=== PATIENT | female | born 1965 | race Caucasian/White ===

== ENCOUNTER 2016-07-28 07:02 | Day surgery (SDC) | payer OTHER ==
[~2016-07-28] VITALS: Ht 167.6 cm; Wt 81.2 kg
[~2016-07-28 07:02] MED LIST: COLACE100 MG PO; FLAGYL500 MG PO; FLUTICASONE PRO16 GM NASAL; LEVAQUIN750 MG PO; PEPCID20 MG PO; WELLBUTRIN XL150 M1 PO; ZYRTEC10 MG PO
[2016-07-28 07:50] LABS: HEMATOCRIT 44.4 % (36.0-48.0); HEMOGLOBIN 15.1 g/dL (12-16); MCH 31.4 pg (26.0-34.0); MCV 92.3 fL (80.0-100.0); MEAN PLATELET VOLUME 10.4 fL (7.4-10.4); RBC 4.81 10x6/uL (4.00-5.40); RDW 12.1 % (11.5-14.5); WBC 5.7 10x3/uL (4.8-10.8)
[2016-07-28 08:00] LABS: HCG SERUM NEGATIVE (NEGATIVE)
[2016-07-28 08:20] VITALS: BP 117/67; Ht 167.6 cm; Wt 81.2 kg
--- NOTE | 2016-07-28 11:12 | NUR ---
NO PREP, NO COUNTS R/T COLONOSCOPY PROCEDURE
--- NOTE | 2016-07-28 11:17 | NUR ---
BOVIE PADS IN PLACE LEFT THIGH
--- NOTE | 2016-07-28 14:20 | NUR ---
1220-RECD FROM PACU. AROUSES EASILY. 1250-FULL LIQUIDS SERVED, PASSING FLATUS. ABD SOFT. 1310-IV D/C, VOIDS AND DRESSED. 1315-D/C INSTRUCTIONS REVIEWED. 1320-D/C HOME VIA WHEELCHAIR
--- NOTE | 2016-08-01 10:04 | OP ---
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 POSTOPERATIVE DIAGNOSES: 1. 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 2. Small sessile polyp 1.2 cm. PROCEDURE: 1. Total colonoscopy to cecum. 2. Hot biopsy forceps polypectomy times 1. 3. Biopsy of the scar and had retreatment of the tattooed area with argon plasma kier drier. SURGEON: John Lenz MD. PHARMACY INTAKE TECHNICIAN: None. BLOOD LOSS: Minimal. ANESTHESIA: General. COMPLICATIONS: None. The risks, possible complications and alternatives to procedure were explained to the patient. She elects to proceed. OPERATIVE COURSE: The patient was conveyed to the operating room electively on 07/28/2016. General anesthesia was induced by the anesthesia staff. The patient was placed in the [place] position. A digital rectal examination was performed. A colonoscope was inserted through the anus. It was easily advanced to the cecum. The prep was adequate. Upon withdrawal, I irrigated and aspirated extensively. I dragged the folds. The pullback was greater than an 18-minute pullback. A hot biopsy forceps polypectomy was performed. The scar was easily identified at the tattooed site. I biopsied the scar. I then retreated the entire area with the argon plasma kier drier utilizing the right colon setting in the forced mode. I used a combination of direct imaging as well as narrow band imaging to visualize the colon. A retroflexed view was obtained in the rectum. I then unretroflexed the scope and removed it under direct vision. I will see the patient in my office in 3 weeks. I will plan to return her endoscopic care back over to Dr. Oneill for surveillance colonoscopies in the future. TRANSINT:[id number] Voice Confirmation ID: [id number] DOCUMENT ID: [id number] OPERATIVE REPORT [id number] MAYTEDIANA MELVINJOHN ALLEN MD at 1004 CC: DAVID ONEILL MD [id number] DICTATION DATE: 07/28/16 1154 MECHANICAL LABORATORY TECHNICIAN: [id number] [facility] 07/28/16 [address] [place] [address]
--- NOTE | 2016-08-01 10:04 | HP ---
PATIENT: DIANA GRIDER MEDICAL RECORD: [id number] ACCOUNT: [id number] LOCATION:D.OPS : 63 ADMISSION DATE: 07/28/16 HISTORY AND PHYSICAL EXAMINATION HISTORY OF PRESENT ILLNESS: The patient has a history of complex polyps. She had a colonoscopy with polypectomy last year. This revealed a tubulovillous adenomatous polyp with diffuse low-grade atypia and this was tattooed. I am going to plan for re-colonoscopy and polypectomy with argon plasma veneer press operator. The risks, possible complications and alternatives to procedure were explained to the patient. She elects to proceed. HOME MEDICATIONS: Please see the nursing list. ALLERGIES: No known drug allergies. SOCIAL HISTORY: Nonsmoker. REVIEW OF SYSTEMS: Negative for heart disease or high blood pressure. Negative for fainting or seizures. Negative for rheumatic fever. Negative for diabetes or thyroid problems. PHYSICAL EXAMINATION: GENERAL: The patient does not appear acutely ill. She does not appear chronically ill. VITAL SIGNS: Reviewed. HEAD: External ears appear normal. EYES: Extraocular movements are intact. NECK: Trachea is midline. CHEST: No intercostal retractions. PULMONARY: Nonlabored, no stridor. ABDOMEN: Nontender. IMPRESSION: History of a complex colon polyp at 35 cm. PLAN: Colonoscopy with polypectomy utilizing argon plasma veneer press operator. TRANSINT:[id number] Voice Confirmation ID: [id number] DOCUMENT ID: [id number] JOHN LENZ MD at 1004 CC: [id number] DICTATION DATE: 07/28/16 1147 BROADCAST OPERATIONS DIRECTOR: 07/28/16 1832 [facility] 07/28/16 [id number] [place] [address]
== END 2016-07-28 13:20 | disposition home or self-care (01) ==
LOC: D.OPS 07:02 → D.PAN 08:45 → D.OPS 11:15 → D.PAN 11:15 → D.OPS 13:20
PROVIDERS: Anesthesiology
DX: K63.5 Polyp of colon (principal); Z86.010 Personal history of colon polyps